=== PATIENT | female | born 1945 | race Caucasian/White ===

== ENCOUNTER → 2016-07-05 | Outpatient (CLI) | payer MEDICARE, OTHER ==
[~2016-07-05] MED LIST: ALBUTEROL17 GM INH; AMOXICILLIN875 MG PO; DIAZEPAM10 MG PO; DITROPAN PO; FLOVENT DISKUS50 MCG; GABAPENTIN400 M2 PO; LISINOPRIL10 MG PO; LOPRESSOR PO; MUCINEX PO; NEURONTIN800 MG PO
--- NOTE | ~2016-07-05 | CT7 ---
[facility] A Service of [facility] & [facility] RADIOLOGY TEXT RESULTS PATIENT: KIRA CHACON LOCATION: [facility] : 41 UNIT #: [id number] AGE: [address]: Edi Caballero MD SEX: F ORDER DR: [id number] [address] [address] [id number] O MR#: [id number] Acc #: [id number] NAME: KIRA CHACON : 1945 SEX: F STUDY DATE/TIME: 07/05/2016 10:09 UNIT: [facility] ROOM: STUDY DESCRIPTION: CT Abdomen Wo Cont Attending Physician: Edi Caballero M.D. Referring Physician: Edi Caballero M.D. Ordering Physician: Edi Caballero M.D. Primary Care Physician: Mao [facility] IMAGING REPORT This report is preliminary unless electronic signature is present. EXAM CT abdomen without contrast DATE 07/05/2016 HISTORY Follow up right nephrectomy. Previous appendectomy. Recent CT chest described soft tissue density in the vicinity of the right renal fossa. Follow up CT of the abdomen was recommended. COMPARISON CT chest without contrast with 12/29/2015. PET CT 09/20/2015. CT chest with contrast 08/09/2015. PROCEDURE 5 mm noncontrast axial images from the lung bases through the iliac crest. Sagittal and coronal reformatted images were obtained. This CT exam was performed with one or more of the following radiation dose reduction techniques: automatic exposure control, adjustment of mA and/or kV according to patient size, and iterative reconstruction. FINDINGS A 3.4 x 1.7 cm area of soft tissue thickening is demonstrated in the right upper quadrant of the abdomen near the superior margin of the nephrectomy bed (series 2 image 11). The patient has presumably undergone right adrenalectomy as well. The aforementioned soft tissue nodular thickening appears increased particularly when compared to the CT chest of 08/09/2015 where measured 2.9 x 1.2 cm. On the previous PET/CT from 09/20/2015, this area was FDG negative. The left adrenal gland and left kidney are normal. The noncontrast appearance of the liver, gallbladder, spleen, pancreas is within normal STS. [facility] A Service of [facility] & [facility] RADIOLOGY TEXT RESULTS PATIENT: KIRA CHACON LOCATION: [facility] : 43 UNIT #: [id number] AGE: [address]: Edi Caballero MD SEX: F ORDER DR: sanchez. Limited evaluation of the bowel due to lack of enteric contrast but no focal bowel inflammatory change is identified. Imaged lung bases are free of consolidation or nodularity. A generator device is embedded within the left lower flank soft tissues with a lead extending into the posterior spinal soft tissues in the lower thoracic region, the tip not included in the field of view. There is lumbar dextroscoliosis. Multilevel degenerative disc endplate changes are present within the lumbar spine. Presumed cysts within the L3 and L4 vertebral bodies, unchanged from the PET CT from 09/20/2015. IMPRESSION 1. Slight interval increase in somewhat nodular soft tissue thickening within the right renal fossa, currently measuring 3.4 x 1.7 cm compared to 2.9 x 1.2 cm on 08/09/2015. The patient does not have a provided history of malignancy. It is conceivable this could represent an area of evolving fibrosis related to previous surgical intervention in this vicinity. Malignancy cannot be completely excluded, particularly if there is a previous existing history of malignancy. Consider correlation with repeat PET/CT. 2. Right nephrectomy and adrenalectomy. 3. Degenerative changes of the lumbar spine with dextroscoliosis. Dictated by... Vickie Burnham M.D. THIS IS AN ELECTRONICALLY VERIFIED REPORT Vickie Burnham M.D. at 07/06/2016 10:[address] [facility]/to TD: 07/05/2016 11:57 JOB #: [id number] MEDICAL IMAGING REPORT
== END | disposition home or self-care (01) ==
LOC: SCT 09:34
DX: N28.89 Other specified disorders of kidney and ureter (principal); M47.896 Other spondylosis, lumbar region; M41.86 Other forms of scoliosis, lumbar region; Z90.5 Acquired absence of kidney; Z90.49 Acquired absence of other specified parts of digestive tract
CPT/HCPCS: 74150

== ENCOUNTER → 2016-10-19 | Outpatient (CLI) | payer MEDICARE, OTHER | END | disposition home or self-care (01) | LOC: SLAB 16:00 | DX: T84.53XA Infection and inflammatory reaction due to internal right knee prosthesis, initial encounter (principal) | CPT/HCPCS: 36415; 85651; 86140 ==

== ENCOUNTER → 2016-11-16 | Outpatient (CLI) | payer MEDICARE, OTHER ==
--- NOTE | ~2016-11-16 | MY11 ---
[facility] A Service of [facility] & [facility] RADIOLOGY TEXT RESULTS PATIENT: KIRA CHACON LOCATION: [facility] : 43 UNIT #: [id number] AGE: [address]: CARLOS WALKER MD SEX: F ORDER DR: [id number] [address] [address] [id number] O MR#: [id number] Acc #: [id number] NAME: KIRA CHACON : 1945 SEX: F STUDY DATE/TIME: 11/16/2016 14:19 UNIT: [facility] ROOM: STUDY DESCRIPTION: MY Mammogram Screening Dig Moises Attending Physician: Mann Walker M.D. Referring Physician: Mann Walker M.D. Ordering Physician: Mann Walker M.D. Primary Care Physician: Mann Walker M.D. MEDICAL IMAGING REPORT This report is preliminary unless electronic signature is present. EXAM Digital screening mammogram, 11/16/2016, [facility]. HISTORY 71-year-old woman; positive family history, 2 sisters. Prior left breast biopsy. COMPARISON Mammograms 05/30/2011, 10/28/2014, 11/01/2015. FINDINGS Digital imaging of each breast was completed, utilizing screening protocol. Review includes FDA-approved CAD device. Breast parenchyma is extremely dense with a nodular parenchymal pattern and duct ectasia noted bilaterally. There are benign calcifications in each breast more so in the left breast. I see no suspicious mass characteristics. There are no suspicious microcalcifications. There is suggested architectural distortion now present in the upper hemisphere of the right breast, middle third. This will require additional imaging to include a true lateral projection, exaggerated craniocaudal projection and high-resolution spot compression views. Targeted ultrasound will be performed, if indicated at the time. IMPRESSION Incomplete mammographic evaluation. Additional right breast imaging is recommended. Refer to complete report. Patients over the age of 40 are entered into a reminder system with target due date for the next mammogram. A result letter will also be sent to the patient. [facility] A Service of [facility] & [facility] RADIOLOGY TEXT RESULTS PATIENT: KIRA CHACON LOCATION: [facility] : 43 UNIT #: [id number] AGE: [address]: CARLOS WALKER MD SEX: F ORDER DR: BIRADS: 0 Incomplete; need additional imaging evaluation and/or prior mammograms for comparison. Dictated by... Herve Lynn M.D. THIS IS AN ELECTRONICALLY VERIFIED REPORT Herve Lynn M.D. at 11/19/2016 7:58 AM [facility]/mine TD: 11/16/2016 16:37 JOB #: [id number] MEDICAL IMAGING REPORT Page 1 of 1
== END | disposition home or self-care (01) ==
LOC: SMAM 13:21
DX: Z12.31 Encounter for screening mammogram for malignant neoplasm of breast (principal); Z80.3 Family history of malignant neoplasm of breast; Z98.890 Other specified postprocedural states
CPT/HCPCS: 71250; 74150; G0202

== ENCOUNTER → 2016-11-16 | Outpatient (CLI) | payer MEDICARE, OTHER ==
--- NOTE | ~2016-11-16 | CT57 ---
[facility] A Service [facility] RADIOLOGY TEXT RESULTS PATIENT: KIRA CHACON LOCATION: [facility] : 41 UNIT #: [id number] AGE: [address]: Edi Caballero MD SEX: F ORDER DR: [id number] [address] [address] [id number] O MR#: [id number] Acc #: [id number] NAME: KIRA CHACON : 1945 SEX: F STUDY DATE/TIME: 11/16/2016 13:47 UNIT: [facility] ROOM: STUDY DESCRIPTION: CT Chest Wo Cont Attending Physician: Edi Caballero M.D. Referring Physician: Edi Caballero M.D. Ordering Physician: Edi Caballero M.D. MEDICAL IMAGING REPORT This report is preliminary unless electronic signature is present. EXAM CT chest without contrast INDICATIONS Follow up emphysema. TECHNIQUE CT chest performed without contrast. Coronal and sagittal reformatted images were obtained. This CT exam was performed with one or more of the following radiation dose reduction techniques: automatic exposure control, adjustment of mA and/or kV according to patient size, and iterative reconstruction. COMPARISON STUDIES Comparison is made with 12/29/2015. FINDINGS There are a few scattered vague ground-glass opacities in the left upper lobe which are not significantly changed and may be chronic areas of infection or inflammation. No dense area of consolidation. No suspicious appearing pulmonary nodule. There is no suspicious lymphadenopathy or pleural effusion. Please refer to separately dictated CT of the abdomen for findings below the diaphragm. The bone windows are unremarkable. IMPRESSION 1. There are some vague areas of ground-glass opacification located within the left upper lobe which are stable and may represent areas of chronic infection or inflammation or possibly scarring. 2. No dense airspace consolidation. 3. No suspicious pulmonary nodule. [facility] A Service [facility] RADIOLOGY TEXT RESULTS PATIENT: KIRA CHACON LOCATION: [facility] : 43 UNIT #: [id number] AGE: [address]: Edi Caballero MD SEX: F ORDER DR: Dictated by... Jorge L Mcleod M.D. THIS IS AN ELECTRONICALLY VERIFIED REPORT Jorge L Mcleod M.D. at 11/19/2016 7:26 AM ARS/pcl TD: 11/16/2016 21:12 JOB #: [id number] MEDICAL IMAGING REPORT Page 1 of 1
--- NOTE | ~2016-11-16 | CT7 ---
[facility] A Service of [facility] & [facility] RADIOLOGY TEXT RESULTS PATIENT: KIRA CHACON LOCATION: [facility] : 41 UNIT #: [id number] AGE: [address]: Edi Caballero MD SEX: F ORDER DR: [id number] [place] [id number] O MR#: [id number] Acc #: [id number] NAME: KIRA CHACON : 1945 SEX: F STUDY DATE/TIME: 11/16/2016 13:32 UNIT: [facility] ROOM: STUDY DESCRIPTION: CT Abdomen Wo Cont Attending Physician: Edi Caballero M.D. Referring Physician: Edi Caballero M.D. Ordering Physician: Edi Caballero M.D. Primary Care Physician: Mann Jean M.D. MEDICAL IMAGING REPORT This report is preliminary unless electronic signature is present. EXAM CT of the abdomen without contrast INDICATIONS Follow up soft tissue density in right renal fossa region. TECHNIQUE CT of the abdomen was performed without contrast. Coronal and sagittal reformatted images were obtained. This CT exam was performed with one or more of the following radiation dose reduction techniques: automatic exposure control, adjustment of mA and/or kV according to patient size, and iterative reconstruction. COMPARISON STUDIES Comparison is made with multiple prior CTs dating back to 08/09/2015. FINDINGS The liver is unremarkable. The gallbladder is unremarkable. The spleen is unremarkable. The left kidney is unremarkable. The right kidney is surgically absent. Redemonstrated is a fusiform area of soft tissue attenuation in the right renal fossa measuring 4.8 x 2.8 cm. This is progressively enlarged compared with studies dating back to 08/09/2015 where at that time, it measured about 3.4 x 1.4 cm. I do not see a definite adrenal gland on the right. I am unsure if the adrenal gland was resected as well or if this structure that it is enlarging and is actually in the right adrenal gland which is either becoming hyperplastic or contains an enlarging nodule. Correlate with surgical history. Certainly if there is concern for malignancy. Further evaluation with the PET CT could be performed. The left adrenal gland is visualized and is unremarkable. Bone windows demonstrate degenerative changes in the lumbar spine. [facility]. [facility] A Service of [facility] RADIOLOGY TEXT RESULTS PATIENT: KIRA CHACON LOCATION: [facility] : 41 UNIT #: [id number] AGE: [address]: Edi Caballero MD SEX: F ORDER DR: IMPRESSION Further increase in size of fusiform soft tissue attenuation in the right renal fossa. I do not see a definite right adrenal gland. The patient appears have had a right nephrectomy. I am unsure if the right adrenal gland was also removed. If the patient has not had a adrenalectomy, then this area may certainly represent the right adrenal gland, however it has increased in size. If it is the adrenal gland, this may be right adrenal gland hypertrophy or could be an enlarging nodule. If the adrenal gland was removed. Then this is some sort of an enlarging process. Correlate clinically. Further evaluation with PET CT may be helpful, particularly if there is concern for malignancy. The left adrenal gland is unremarkable. Dictated by... Jorge L Mcleod M.D. THIS IS AN ELECTRONICALLY VERIFIED REPORT Jorge L Mcleod M.D. at 11/19/2016 7:26 AM [place] TD: 11/16/2016 21:09 JOB #: [id number] MEDICAL IMAGING REPORT Page 1 of 1
== END | disposition home or self-care (01) ==
LOC: SCT 11-15 13:00
DX: M79.89 Other specified soft tissue disorders (principal); J98.4 Other disorders of lung; Z90.5 Acquired absence of kidney
CPT/HCPCS: 71250; 74150

== ENCOUNTER → 2016-11-27 | Outpatient (CLI) | payer MEDICARE, OTHER ==
--- NOTE | ~2016-11-27 | MY25 ---
[facility] A Service of [facility] RADIOLOGY TEXT RESULTS PATIENT: KIRA CHACON LOCATION: [facility] : 43 UNIT #: [id number] AGE: [address]: CARLOS WALKER MD SEX: F ORDER DR: [id number] [facility] [address] [place], [place] [address] [id number] O MR#: [id number] Acc #: [id number] NAME: KIRA CHACON : 1945 SEX: F STUDY DATE/TIME: 11/27/2016 9:24 UNIT: [facility] ROOM: STUDY DESCRIPTION: [facility] YAMIL W/ CAD UNI RT Attending Physician: Mann Walker M.D. Referring Physician: Mann Walker M.D. Ordering Physician: Mann Walker M.D. Primary Care Physician: Mann Walker M.D. MEDICAL IMAGING REPORT This report is preliminary unless electronic signature is present EXAM Right digital diagnostic mammogram. INDICATIONS Architectural distortion in the right breast on screening mammogram. PROCEDURE True lateral view of the right breast and spot compression views in the MLO and XCCL projections obtained on a digital mammography unit. COMPARISON Screening mammogram 11/16/2016. FINDINGS Scattered fibroglandular density. There is no persistent architectural distortion, mass or suspicious calcification in the right breast. There are a few benign calcifications in the right breast. IMPRESSION Benign right diagnostic mammogram. Recommend patient return to yearly screening. BIRADS: 2 Benign findings. Dictated by... Doroteo Spring M.D. THIS IS AN ELECTRONICALLY VERIFIED REPORT Doroteo Spring M.D. at 11/27/2016 5:00 PM [facility]/kathy TD: 11/27/2016 13:52 JOB #: [id number] [facility] A Service [facility] RADIOLOGY TEXT RESULTS PATIENT: KIRA CHACON LOCATION: [facility] #: [id number] : 41 UNIT #: [id number] AGE: [address]: CARLOS WALKER MD SEX: F ORDER DR: MEDICAL IMAGING REPORT Page 1 of 1 COPY
== END | disposition home or self-care (01) ==
LOC: CMAM 08:53
DX: R92.8 Other abnormal and inconclusive findings on diagnostic imaging of breast (principal)
CPT/HCPCS: G0206